=== PATIENT | male | born 2000 | race American Indian/Alaskan Native ===

== ENCOUNTER 2022-11-24 12:48 | Emergency (ER) | payer OTHER, SELFPAY ==
--- NOTE | ~2022-11-24 | XR_ITS ---
EXAMINATION: XR CHEST CLINICAL INFORMATION: Difficulty breathing COMPARISON: None available. TECHNIQUE: 2 views of the chest were obtained. FINDINGS: No significant abnormality is noted involving the heart, lungs, mediastinum, bony thorax or soft tissues. XR/XR chest 2V IMPRESSION: Unremarkable examination.
[2022-11-24 12:54] VITALS: BP 133/71; PULSE 74; RESP 16; TEMP 36.7; O2SAT 100; BMI 20.3
--- NOTE | 2022-11-24 12:54 | ED.SOB ---
HPI - SOB/Dyspnea General Chief Complaint: Dyspnea Stated Complaint: diff breathing Time Seen by Provider: 11/24/22 13:12 Source: patient Mode of arrival: ambulatory Limitations: no limitations History of Present Illness HPI Narrative: Patient is a 22-year-old male with history of depression, anxiety, eating/sleeping disorder, ADHD presenting emergency department with complaint of productive cough for 4 days as well as episodes of feeling as though he is unable to breathe while lying down at night. Patient reports that he smokes marijuana as well as ?puff bars? which are single use nicotine e-cigarettes. Patient states that he cooled information about the path bars and found that they can cause ?popcorn lungs. He denies any fevers, ear pain, sore throat, abdominal pain, nausea, vomiting. Denies any chest pain. MD elicited complaint: shortness of breath and cough Onset (ago): day(s) Context: smoke/fume exposure Timing: intermittent Exacerbating factors: lying flat Relieving factors: nothing Associated symptoms: cough Treatment prior to arrival: none Related Data Allergies Allergy/AdvReac Type Severity Reaction Status Date / Time No Known Allergies Allergy Verified 11/24/22 12:57 Review of Systems Review of Systems: As per HPI. Yes all other systems are reviewed and are negative Constitutional: Constitutional: Reports as per HPI [facility] Social History Social History Advance Directives: No Advance Directives Information Provided: No Physical Exam Vital Signs: Vital Signs: Last Vital Signs Temp 98.4 F 11/24/22 14:55 Pulse 64 11/24/22 14:55 Resp 18 11/24/22 14:55 BP 136/76 11/24/22 14:55 Pulse Ox 99 11/24/22 14:55 O2 Del Method Room Air 11/24/22 14:55 BMI result Body Mass Index 20.3 Vital signs have been reviewed and appear to be correct. Blood pressure normal. Heart rate normal. Respiratory rate normal. Temperature normal. Oxygen saturation normal. Const: General: cooperative, healthy appearing and no acute distress Orientation/consciousness: oriented to person, oriented to place, oriented to time and patient oriented x3 Limitations: no limitations HEENT: Head: Yes normocephalic and Yes atraumatic Ears: external ears normal General nose exam: Normal external nose present Face and sinus: Yes face symmetric Mouth: oropharynx normal and moist mucous membranes Throat: Yes uvula midline Eyes: Pupils: Equal, round and reactive pupils present Neck: Neck: Yes normal visual inspection and Yes supple Resp: Effort & Inspection: normal respiratory effort and able to speak in complete sentences Auscultation: clear to auscultation bilaterally Cardio: Rate: regular rate Rhythm: regular rhythm Heart sounds: S1 normal heart sound present and S2 normal heart sound present GI: Palpation (GI): Soft to palpation and nontender Auscultation: normoactive bowel sounds : General: Yes no CVA tenderness Back/Spine/Pelvis: Back: no CVA tenderness Skin: General skin exam: elasticity normal and turgor normal Neuro: General: oriented to person, oriented to place, oriented to time, patient oriented x3, moves all extremities, no focal motor deficits and CN's II-XI intact bilaterally Cranial nerves: Yes Equal, round and reactive pupils present Cognition (Neuro): normal cognition Extrem: General: Yes full ROM, Yes no pedal edema and Yes no calf tenderness Psych: Mental Status: mental status grossly normal Affect: normal affect Thought process: Normal thought process present Course Course Course Narrative: This is a rapid medical exam. Deferred additional HPI, ROS, PE to primary provider. 22yo male with history of depression, anxiety, eating/sleeping disorder, ADHD here with diff breathing x 3 days. No cough or fever. LS CTA in triage,no apparent distress. Has been smoking puff bars which patient tells me is nicotine VSS Medical Decision Making Medical Decision Making MDM Narrative: Patient is a 22-year-old male with history of depression, anxiety, eating/sleeping disorder, ADHD presenting emergency department with complaint of productive cough for 4 days as well as episodes of feeling as though he is unable to breathe while lying down at night. On exam patient is awake, A+Ox3, VS WNL, afebrile, normal neurological exam without focal deficits, physical exam findings as above. Given reported symptoms and physical exam findings, initial differential includes bronchitis, pneumonia, viral illness, interstitial lung disease. COVID, flu, and RSV all negative X-ray chest unremarkable. My interpretation is in agreement with the radiologist's interpretation. Discussed results with patient all questions answered. Encouraged patient to discontinue use of vape pens and smoking, advised him to follow-up with his PCP regarding assistance with smoking cessation. Return precautions discussed at bedside. Patient verbalized understanding of and agreement with plan. Differential Diagnosis Differential Diagnoses: The differential diagnosis associated with the presentation includes As per [facility]. Lab Data [facility] Lab Attestation statement: I reviewed the patient's lab results. As per [facility]. Labs: Lab Results 11/24/22 Range/Units 13:55 Influenza Type A (PCR) NEGATIVE (Negative) Influenza Type B (PCR) NEGATIVE (Negative) RSV RNA Qual (PCR) NEGATIVE (Negative) SARS-CoV-2 RNA (RT-PCR) NEGATIVE (Negative) Independent Interpretation I performed an independent interpretation of an: Plain X-Ray Interpretation: No acute abnormality on chest x-ray Radiology Impression Discussion of test interpretation with radiology: I have reviewed the radiologist's reading. Radiologist Impression: XR/XR chest 2V IMPRESSION: Unremarkable examination. External Record Review External record reviewed: Inpatient record, Office record and Outpatient record Discharge Plan Discharge Clinical Impression: Cough Patient Disposition: Home, Self-Care Instructions: Acute Cough (ED), How to Stop Smoking (ED), Electronic Cigarettes and Your Health (ED) Additional Instructions: You were evaluated in the emergency department today for cough. Your chest x-ray did not show evidence of a pneumonia or any other abnormality. Your cough is most likely due to a viral illness which will improve on its own with rest and fluids. YOU SHOULD STOP SMOKING, IT IS BAD FOR YOU. Please schedule an appointment for follow-up with your primary care physician within 2 days. Return to the emergency department if you experience worsening cough, fever 100.4? F or greater, recurrent vomiting, chest pain, shortness of breath, or any other concerning symptoms.
[2022-11-24 14:50] LABS: Influenza A PCR NEGATIVE (Negative); Influenza B PCR NEGATIVE (Negative); Resp Syncy Virus RNA Qual PCR NEGATIVE (Negative); SARS COV2 PCR INHOUSE NEGATIVE (Negative)
[2022-11-24 14:55] VITALS: BP 136/76; PULSE 64; RESP 18; TEMP 36.9; O2SAT 99
== END 2022-11-24 15:10 | disposition home or self-care (01) ==
PROVIDERS: Nurse Practitioner Family; Emergency Provider Emergency Medicine
DX: R05.9 Cough, unspecified (principal); R06.00 Dyspnea, unspecified; Z20.822 Contact with and (suspected) exposure to COVID-19; Z20.828 Contact with and (suspected) exposure to other viral communicable diseases
CPT/HCPCS: 0241U; 71046; 99282; 99283

== ENCOUNTER 2023-03-23 07:34 | Emergency (ER) | payer OTHER, SELFPAY ==
[2023-03-23 07:39] VITALS: BP 126/88; PULSE 72; RESP 18; TEMP 36.7; O2SAT 96; BMI 19.9
--- NOTE | 2023-03-23 07:48 | ED_ITS ---
HPI - Ear Problem General Chief complaint: Ear Problems Stated complaint: Unable to hear out of R ear Time Seen by Provider: 03/23/23 07:38 Source: patient Mode of arrival: ambulatory Limitations: no limitations History of Present Illness HPI Narrative: 23 yo male health here with L ear pain and decreased hearing, no trauma, no fevers, no drainage. no swimming MD Complaint: ear pain Location: left ear Duration: constant Severity: moderate Relieving factors: nothing Exacerbating factors: chewing, position of head and palpation Discharge from ear: no Associated symptoms ear: decreased hearing Treatment prior to arrival: none Related Data Previous Rx's Medication Instructions Recorded amoxicillin 875 mg-potassium 1 tab PO BID #14 tabs 03/23/23 clavulanate 125 mg tablet Allergies Allergy/AdvReac Type Severity Reaction Status Date / Time No Known Allergies Allergy Verified 11/24/22 12:57 Review of Systems Review of Systems: Constitutional : No Fever, No Chills, No Fatigue ENT/Mouth : No sore throat, No Rhinorrhea, pos ear pain, pos decreased hearing Eyes: No Eye Pain, No Swelling, No Redness Cardiovascular : No Chest Pain, No SOB, No Dyspnea on Exertion Respiratory : No Cough, No Sputum Gastrointestinal : No Nausea, No Vomiting, No Diarrhea, No abdominal Pain Musculoskeletal : No joint pain, No Myalgias, No Joint Swelling Skin : No Skin Lesions, No rash Neuro : No Weakness, No Numbness, No Dizziness, no Headache All other systems reviewed and are negative [facility] Past Medical History Medical History No pertinent past medical history Social History Social History (Updated 03/23/23 @ 07:52 by Laina Short DO) Patient Tobacco Use Status: Never used Tobacco Physical Exam Vital Signs: Vital Signs: Last Vital Signs Temp 98.1 F 03/23/23 07:39 Pulse 72 03/23/23 07:39 Resp 18 03/23/23 07:39 BP 126/88 03/23/23 07:39 Pulse Ox 96 03/23/23 07:39 O2 Del Method Room Air 03/23/23 07:39 BMI result Body Mass Index 19.9 Appearance: Alert. Oriented X3. No acute distress. Eyes: Pupils equal, round and reactive to light. ENT: Pharynx normal. L ear TM bulging with very small perforation noted anteriorly slit like ext ear and canal normal appearing mastoid normal Neck: Normal inspection. Neck supple. CVS:Pulses normal. Respiratory: No respiratory distress. Abdomen: Soft and nontender. Skin: Skin warm and dry. Normal skin color. Extremities: No lower extremity edema. Neuro: Oriented X 3. No motor deficit. No sensory deficit. Medical Decision Making Medical Decision Making MDM Narrative: 23 yo male with no sig PMH here with c/o L ear pain - has AOM and slit like perforation he is not toxic no mastoid ttp no neuro symptoms afebrile discussed no water in ear and follow up in 1 week to assess closure. Start on augmentin. Stable for outpatient management. Differential Diagnosis Differential Diagnoses: The differential diagnosis associated with the presentation includes AOM, external otitis External Record Review External record reviewed: Inpatient record Prescription Management I considered prescription management with: Antibiotic Discharge Plan Discharge Clinical Impression: Otitis media Qualifiers: Otitis media type: suppurative Chronicity: acute Laterality: left Recurrence: non-recurrent Spontaneous tympanic membrane rupture: with spontaneous rupture Qualified Code(s): H66.012 - Acute suppurative otitis media with spontaneous rupture of ear drum, left ear Patient Disposition: Home, Self-Care Instructions: Ruptured Eardrum (ED), Ear Infection (ED) Additional Instructions: finish all antibiotics. no water in ear for 7 days. return for worsening symptoms, pain fevers no improvement. use cotton ball with vaseline to block ear or use ear plug that is waterproof. you will get drainage out of your ear this is expected. repeat check of ear in one week to make sure hole is closed. Prescriptions: New amoxicillin-pot clavulanate 875-125 mg tablet 1 tab PO BID Qty: 14 0RF
== END 2023-03-23 07:54 | disposition home or self-care (01) ==
PROVIDERS: Emergency Provider Emergency Medicine
DX: H66.012 Acute suppurative otitis media with spontaneous rupture of ear drum, left ear (principal); H92.02 Otalgia, left ear
CPT/HCPCS: 99282; 99283

== ENCOUNTER 2023-08-19 08:17 | Emergency (ER) | payer OTHER, SELFPAY ==
--- NOTE | ~2023-08-19 | XR_ITS ---
EXAMINATION: XR HAND/WRIST, RIGHT CLINICAL INFORMATION: Pain on top of hand/wrist COMPARISON: None TECHNIQUE: PA, lateral, and oblique views of the right hand and wrist. FINDINGS: The bones and soft tissues are normal. No fracture. Alignment is anatomic. Joint spaces are maintained. No erosions or soft tissue calcifications. XR/XR hand wrist RT IMPRESSION: Normal radiographs of the hand and wrist.
[2023-08-19 08:19] VITALS: BP 152/87; PULSE 85; RESP 18; TEMP 36.7; O2SAT 98; BMI 19.8
--- NOTE | 2023-08-19 08:23 | ED_ITS ---
HPI - Extremity Problem General Chief complaint: Extremity Injury, Upper Stated complaint: R wrist pain Time Seen by Provider: 08/19/23 08:23 Source: patient Mode of arrival: ambulatory Limitations: no limitations History of Present Illness ED Provider: Cruzito JORDAN HPI Narrative: This is a 23-year-old male presenting with right wrist pain/hand pain status post boxing yesterday, patient reports he went in to given upper cut, and hurt his wrist. Since then pain is worse with movement better at rest and is having a hard time carrying anything heavy. Denies associated numbness and tingling. No other injuries from this. No previous injuries with right wrist. Related Data Previous Rx's ?Medication ?Instructions ?Recorded amoxicillin 875 mg-potassium 1 tab PO BID #14 tabs 03/23/23 clavulanate 125 mg tablet ketorolac 10 mg tablet 10 mg PO TID PRN pain 5 days #15 08/19/23 tabs Allergies Allergy/AdvReac Type Severity Reaction Status Date / Time No Known Allergies Allergy Verified 08/19/23 08:21 Review of Systems Review of Systems: Yes all other systems are reviewed and are negative [facility] Past Medical History Attestation statement: The following information was validated with the patient. Source: old records reviewed and nursing notes reviewed Medical History No pertinent past medical history Social History Social History Patient Tobacco Use Status: Never used Tobacco Advance Directives: No Advance Directives Information Provided: Yes Do you have a plan to hurt others: No Plan Physical Exam 2 Vital Signs: Vital Signs: Last Vital Signs Temp 98.0 F 08/19/23 08:19 Pulse 85 08/19/23 08:19 Resp 18 08/19/23 08:19 BP 152/87 H 08/19/23 08:19 Pulse Ox 98 08/19/23 08:19 O2 Del Method Room Air 08/19/23 08:19 BMI result Body Mass Index 19.8 vss Appearance: Alert.? Oriented X3.? No acute distress.? Head: Normocephalic, atraumatic, no step-offs or deformities Eyes: Pupils equal, round and reactive to light.? Neck: Normal inspection.? Neck supple.? CVS: Normal heart rate and rhythm.? Pulses normal.? Respiratory: No respiratory distress.? Breath sounds normal.? Abdomen: Soft and nontender.? Skin: Skin warm and dry.? Normal skin color.? Normal skin turgor.? Extremities: No lower extremity edema.? No calf ttp. 5/5 strength to bilateral upper and lower extremities 2+ radial pulses equal and b/l. Normal sensation distally b/l. Normal hand electrical and instrumentation mechanic b/l but reports pain with hand electrical and instrumentation mechanic on the right. Painful rom to right wrist normal rom to left wrist. Cap refil <2 seconds equal and b/l. + ttp to radial side of right wrist. Neuro: Oriented X 3.? No motor deficit.? No sensory deficit. CN 2-12 intact Course Reevaluation(s) Reevaluation #1: X-ray unremarkable. On nurse re-evaluation patient better. Educated patient on diagnosis and treatment plan, answered all question, patient verbalizes understanding. At this time patient will be discharged home, advised to return with new or worsening symptoms. Educated on worrisome signs and symptoms and when to return. At this time I feel comfortable discharge home. Time: 09:06 Medications Administered Discontinued Medications Generic Name Dose Route Start Last Admin Trade Name Freq PRN Reason Stop Dose Admin Ketorolac Tromethamine 30 mg 08/19/23 08:26 08/19/23 08:30 Ketorolac Tromethamine 30 Mg/Ml Vial IM 08/19/23 08:27 30 mg ONCE ONE Administration Medical Decision Making Medical Decision Making [facility] Narrative: [id number] 23-year-old male presents with right wrist pain status post boxing injury Physical exam No lower extremity edema.? No calf ttp. 5/5 strength to bilateral upper and lower extremities 2+ radial pulses equal and b/l. Normal sensation distally b/l. Normal hand electrical and instrumentation mechanic b/l but reports pain with hand electrical and instrumentation mechanic on the right. Painful rom to right wrist normal rom to left wrist. Cap refil <2 seconds equal and b/l. + ttp to radial side of right wrist. History and physical exam concerning for sprain or strain versus fracture dislocation. Unlikely neurovascular compromise acute threat to limb. Plan imaging Differential Diagnosis Differential Diagnoses: The differential diagnosis associated with the presentation includes History and physical exam concerning for sprain or strain versus fracture dislocation. Unlikely neurovascular compromise acute threat to limb. Admission/Observation Consideration of admission/observation: Escalation of care including admission/observation considered Possible Independent Interpretation I performed an independent interpretation of an: Plain X-Ray Radiology Impression Discussion of test interpretation with radiology: I have reviewed the radiologist's reading. External Record Review External record reviewed: Outpatient record Prescription Management I considered prescription management with: Pain Medication Critical Care Time Critical Care Time Critical Care Time: No Discharge Plan Discharge Clinical Impression: Right wrist pain Patient Disposition: Home, Self-Care Instructions: Wrist Injury (ED), Arthralgia (ED) Additional Instructions: Take your medications as prescribed. If you were prescribed antibiotics today, it is important that you take your medication to their entirety, do not skip any doses, do not finish them early. Follow-up with your primary care provider this week. Return to the emergency department with new or worsening symptoms. Such as fevers, chills, chest pain, shortness of breath, nausea, vomiting, dizziness, headache, vision changes, lethargy, numbness, tingling In case of emergency call 911 Toradol has been sent to your pharmacy, you tolerated this well in the department. Please take this as prescribed do not take this with ibuprofen, or other NSAIDs, do not mix this with alcohol. Side effects of this medication including increased risk for bleeding and possible kidney injury. Follow-up with the orthopedic team if needed. Wear your splint as educated. Do not wear it at night. Rest, ice, compress and elevate extremity. I will call you of your x-rays abnormal. Prescriptions: New ketorolac 10 mg tablet 10 mg PO TID PRN (Reason: pain) 5 Days Qty: 15 0RF No Action amoxicillin-pot clavulanate 875-125 mg tablet 1 tab PO BID Qty: 14 0RF Referrals: Physician,Unknown J [Primary Care Provider] - 2 days [facility] [Provider Group] - 2 days Stand Alone Forms: Work/School Release Print Language: Bulgarian
[2023-08-19] MEDS: Ketorolac Tromethamine 30 MG/ML VIAL IM (08:30)
--- NOTE | 2023-08-19 08:33 | PC.NURSE ---
a&ox4. vss and up to date aside from being slightly hypertensive. pt from triage s/p hurting right wrist while boxing about a week and a half ago. states he was lifting a heavy box on saturday/made pain increase. swelling noted to medial side of wrist. cms intact. denies numbness/tingling. pulses palpable. medication administered per provider order. effectiveness pending. pt waiting for xray to be completed.
--- OUTSIDE RECORDS SUMMARY | 2023-08-19 08:42 | XMS_ITS | Continuity of Care Document ---
Author Organization [facility] Address [address] [place] [address]- Care Team Providers Care Relationship Mgr Name Role Phone Not on Staff, PCP Primary Care Physician Unavail able Encounter [facility] Date(s): 12/06/22 - 01/05/23 [place] [address]- Allergies, Adverse Reactions, Alerts No Known Allergies Patient Care team information Care Team Personnel Name: Not on Staff, PCP Position: [facility] Physician (General Medicine) Member Role: PCP Care Team Related Persons Name: EDUAR FLORES Address: home [address] [place] [address]
--- OUTSIDE RECORDS SUMMARY | 2023-08-19 08:42 | XMS_ITS | Continuity of Care Document ---
Author Organization [facility] Address [address] [place] [address]- Care Team Providers Care Client Services Account Manager Name Role Phone Pari Spence Primary Care Physician Encounter [facility] Date(s): 03/29/23 - 03/29/[address] [id number] Attending Physician: Pari Spence Allergies, Adverse Reactions, Alerts No Known Allergies Medications Augmentin 875 mg-125 mg oral tablet 1 tablet, By Mouth, Every 12 hours, for 7 days, # 14 tablet, 0 Refills, Acute 04/05/23 15:35:00 EST, 03/29/23 15:35:00 EST, Tablet, [id number], Partial fill upon patient request if the prescription is for a schedule II opioid drug., 168, cm, 0... Start Date: 03/29/23 Stop Date: 04/05/23 Status: Ordered Problem List No Known Problems Social History Social History Type Response Smoking Status 5-9 cigarettes (betw een 1/4 to 1/2 pack)/day in last 30 days; Interested in cessation: Yes entered on: 03/29/23 Sex Patient Care team information Care Team Personnel Name: Pari Spence Position: [facility] PCO Associate Professional Member Role: PCP Address: Address: [address] [place] [address]- Care Team Related Persons Name: EDUAR FLORES Address: home [address] [place] [address]
--- OUTSIDE RECORDS SUMMARY | 2023-08-19 08:42 | XMS_ITS | Continuity of Care Document ---
Author Organization [facility] Address [address] [place] [address]- Care Team Providers Care Supervisor Braiding Name Role Phone Pari Spence Primary Care Physician [phone] Encounter [facility] Date(s): 03/29/23 - 04/28/23 [facility] Adult [address] [place] [address]- Attending Physician: Admtr, Ar8 Admitting Physician: Admtr, Ar8 Referring Physician: Admtr, Ar8 Allergies, Adverse Reactions, Alerts No Known Allergies Problem List No Known Problems Social History Social History Type Response Smoking Status 5-9 cigarettes (betw een 1/4 to 1/2 pack)/day in last 30 days; Interested in cessation: Yes entered on: 03/29/23 Sex Patient Care team information Care Team Personnel Name: Pari Spence Position: [facility] PCO Associate Professional Member Role: PCP Address: Address: [address] [place] [address]- Care Team Related Persons Name: EDUAR FLORES Address: home [address] [place] [address]
--- OUTSIDE RECORDS SUMMARY | 2023-08-19 08:42 | XMS_ITS | Continuity of Care Document ---
Author Organization [facility] Alirio [facility] Address [address] [place] [address]- Care Team Providers Care Knitting Teacher Name Role Phone Pari Spence Primary Care Physician [phone] Encounter [facility] Date(s): 04/10/23 - 05/10/23 [facility] Adult [address] [place] [address]- Allergies, Adverse Reactions, Alerts No Known Allergies Problem List No Known Problems Social History Social History Type Response Smoking Status 5-9 cigarettes (betw een 1/4 to 1/2 pack)/day in last 30 days; Interested in cessation: Yes entered on: 03/29/23 Sex Patient Care team information Care Team Personnel Name: Pari Spence Position: [facility] PCO Associate Professional Member Role: PCP Address: Address: [address] [place] [address]- Care Team Related Persons Name: EDUAR FLORES Address: home [address] [address] [facility] [address] [place] [address]
--- OUTSIDE RECORDS SUMMARY | 2023-08-19 08:42 | XMS_ITS | Continuity of Care Document ---
Author Organization [facility] Alirio Bert Address [address] [place] [address]- Care Team Providers Care Dance Professor Name Role Phone Pari Spence Primary Care Physician Encounter [facility] Date(s): 05/31/23 - 06/30/23 [facility] Adult [address] [place] [id number] Allergies, Adverse Reactions, Alerts No Known Allergies Problem List No Known Problems Social History Social History Type Response Smoking Status 5-9 cigarettes (betw een 1/4 to 1/2 pack)/day in last 30 days; Interested in cessation: Yes entered on: 03/29/23 Sex Patient Care team information Care Team Personnel Name: Pari Spence Position: [facility] PCO Associate Professional Member Role: PCP Address: Address: [address] [place] [address]- Care Team Related Persons Name: EDUAR FLORES Address: home [address] [place] [address]
--- OUTSIDE RECORDS SUMMARY | 2023-08-19 08:42 | XMS_ITS | Continuity of Care Document ---
Author Organization [facility] Address [address] [place] [phone]- Care Team Providers Care Valve Assembler Name Role Phone Not on Staff, PCP Primary Care Physician Unavail able Encounter [facility] Date(s): 03/07/22 - 04/06/[address] [address]- Allergies, Adverse Reactions, Alerts No Known Allergies Patient Care team information Care Team Personnel Name: Not on Staff, PCP Position: [facility] Physician (General Medicine) Member Role: PCP Care Team Related Persons Name: EDUAR FLORES Address: home [address] [place] [address] [place] [address]
--- OUTSIDE RECORDS SUMMARY | 2023-08-19 08:42 | XMS_ITS | Continuity of Care Document ---
Author Organization [facility] ter Address [address] [place] [id number]- Care Team Providers Care Raw Material Planner Name Role Phone Not on Staff, PCP Primary Care Physician Unavail able Encounter [facility] [place] Date(s): 04/06/21 - 04/07/[address] [address]- Discharge Disposition: A-D/C Home Attending Physician: Lo Johnson MD Admitting Physician: Lo Johnson MD Referring Physician: Not on Staff, Referring MD Allergies, Adverse Reactions, Alerts No Known Allergies Vital Signs Most recent to oldest [Reference Range]: 1 2 3 Oxygen Saturation [94-100 %] 100 % (04/07/21 12:17 AM) 99 % (04/06/21 11:42 PM) 100 % (04/06/21 8:25 PM) Pulse Rate [55-90 bpm] 58 bpm (04/07/21 12:17 AM) 108 bpm *H* (04/06/21 11:42 PM) 70 bpm (04/06/21 8:25 PM) Blood Pressure [90-138/55-84 mm Hg] 130/63mm Hg (04/07/21 12:17 AM) 142/84mm Hg *H* (04/06/21 11:42 PM) 134/73mm Hg (04/06/21 8:25 PM) Respiratory Rate [16-30 br/min] 16 br/min (04/07/21 12:17 AM) 20 br/min (04/06/21 11:42 PM) 16 br/min (04/06/21 8:25 PM) Temperature [96.8-100.4 DegF] 98.2 DegF (04/06/21 11:42 PM) 98.2 DegF (04/06/21 8:25 PM) 98.4 DegF (04/06/21 7:40 PM) Mode of Delivery (Oxygen) Room air (04/07/21 12:17 AM) Room air (04/06/21 11:42 PM) Room air (04/06/21 8:25 PM) Blood pressure sites Arm, right (04/07/21 12:17 AM) Arm, right (04/06/21 11:42 PM) Arm, left (04/06/21 8:25 PM) Temperature Route Axillary (04/06/21 11:42 PM) Oral (04/06/21 8:25 PM) Oral (04/06/21 7:40 PM)
--- OUTSIDE RECORDS SUMMARY | 2023-08-19 08:42 | XMS_ITS | Continuity of Care Document ---
Author Organization [facility] Address [address] [place] [address]- Care Team Providers Care Agronomy Advisor Name Role Phone Not on Staff, PCP Primary Care Physician Unavail able Encounter [facility] Date(s): 12/31/22 - 01/30/23 [facility] [address] [place] [address]- Attending Physician: Admtr, Ar8 Admitting Physician: Admtr, Ar8 Referring Physician: Admtr, Ar8 Allergies, Adverse Reactions, Alerts No Known Allergies Patient Care team information Care Team Personnel Name: Not on Staff, PCP Position: S Physician (General Medicine) Member Role: PCP Care Team Related Persons Name: EDUAR FLORES Address: home [address] [place] [address]
--- OUTSIDE RECORDS SUMMARY | 2023-08-19 08:42 | XMS_ITS | Continuity of Care Document ---
Author Organization [facility] Alirio Bert lt Address [address] [place] [address]- Care Team Providers Care Studio Set Up Worker Name Role Phone Pari Spence Primary Care Physician Encounter [facility] [place] Date(s): 03/29/23 - 04/05/23 [facility] Adult [address] [place] [address]- Encounter Diagnosis Wellness examination(Discharge Diagnosis) - 03/29/23 Attending Physician: Pari Spence Allergies, Adverse Reactions, Alerts No Known Allergies Problem List No Chronic Problems Diagnosis Diagnosis Type Effective Dates Health Status Clinical Service Informant Wellness examination Discharge Diagnosis 03/29/23 Vital Signs Most recent to oldest [Reference Range]: 1 Height 168 cm (03/29/23 3:21 PM) Weight 57.7 kg (03/29/23 3:21 PM) Oxygen Saturation [94-100 %] 97 % (03/29/23 3:21 PM) Pulse Rate [55-90 bpm] 60 bpm (03/29/23 3:21 PM) Body Mass Index [18.5-24.99 kg/m2] 20.44 kg/m2 (03/29/23 3:21 PM) Blood Pressure [90-138/55-84 mm Hg] 123/ 64mm Hg (03/29/23 3:21 PM) Temperature [96.8-100.4 DegF] 98.7 DegF (03/29/23 3:21 PM) Mode of Delivery (Oxygen) Room air (03/29/23 3:21 PM) Blood pressure sites Arm, right (03/29/23 3:21 PM) Temperature Route Oral (03/29/23 3:21 PM) Weight Obtained Via Standing scale (03/29/23 3:21 PM) Social History Social History Type Response Smoking Status 5-9 cigarettes (betw een 1/4 to 1/2 pack)/day in last 30 days; Interested in cessation: Yes entered on: 03/29/23 Sex Patient Care team information Care Team Personnel Name: Pari Spence Position: [facility] PCO Associate Professional Member Role: PCP Address: Address: [address] [place] [address]- Care Team Related Persons Name: EDUAR FLORES Address: home [address] [place] [address] [place] [address]
--- OUTSIDE RECORDS SUMMARY | 2023-08-19 08:42 | XMS_ITS | Continuity of Care Document ---
Author Organization [facility] Bert Address [address] [place] [id number]- Care Team Providers Care Professional Benefits Sales Consultant Name Role Phone Pari Spence Primary Care Physician [phone] [place] [facility] [place] 06/14/23 - 07/14/23 [facility] Adult [address] [place] [address]- Attending Physician: Admtr, Ar8 Admitting Physician: Admtr, [...] Associate Professional Member Role: PCP Address: Address: [address] [place] [address] Care Team Related Persons Name: EDUAR FLORES Address: home [address] [place] [address]
--- OUTSIDE RECORDS SUMMARY | 2023-08-19 08:42 | XMS_ITS | Continuity of Care Document ---
Author Organization [facility] Bert Address [address] [place] [address]- Care Team Providers Care Nursing Information Systems Coordinator Name Role Phone Pari Spence Primary Care Physician [place] [facility] [place]s): 05/31/23 - 07/14/23 [facility] Adult [address] [place] [address]- Attending Physician: Pari Spence Referring Physician: Geovanni Ybarra MD Allergies, Adverse Reactions, Alerts No Known Allergies Problem List No Known Problems Social History Social History Type Response Smoking Status 5-9 cigarettes (betw een 1/4 to 1/2 pack)/day in last 30 days; Interested in cessation: Yes entered on: 03/29/23 Sex Patient Care team information Care Team Personnel Name: Pari Spence Position: S PCO Associate Professional Member Role: PCP Address: Address: [address] [place] [phone]- Care Team Related Persons Name: EDUAR FLORES Address: home [address] [place] [address]
--- OUTSIDE RECORDS SUMMARY | 2023-08-19 08:42 | XMS_ITS | Continuity of Care Document ---
Author Organization [facility] Address [address] [place] [address]- Care Team Providers Care Turkish Rubber Name Role Phone Not on Staff, PCP Primary Care Physician Unavail able Encounter [facility] Date(s): 12/06/22 - 01/30/23 [facility] [address] [place] [address]- Attending Physician: Not on Staff, Attending MD Allergies, Adverse Reactions, Alerts No Known Allergies Patient Care team information Care Team Personnel Name: Not on Staff, PCP Position: S Physician (General Medicine) Member Role: PCP Care Team Related Persons Name: EDUAR FLORES Address: home [address] [place] [address]
[2023-08-19 09:08] VITALS: BP 152/87; PULSE 85; RESP 18; TEMP 36.7; O2SAT 98
--- NOTE | 2023-08-19 09:08 | PC.NURSE ---
splint applied to right wrist. pt tolerated well.
== END 2023-08-19 09:09 | disposition home or self-care (01) ==
PROVIDERS: Emergency Provider Emergency Medicine
DX: S69.91XA Unspecified injury of right wrist, hand and finger(s), initial encounter (principal); M25.531 Pain in right wrist; M79.641 Pain in right hand; X50.0XXA Overexertion from strenuous movement or load, initial encounter; X50.9XXA Other and unspecified overexertion or strenuous movements or postures, initial encounter; Y93.9 Activity, unspecified; Y92.9 Unspecified place or not applicable; Y99.8 Other external cause status
CPT/HCPCS: 29125; 73110; 73130; 96372; 99283; 99284; J1885

== ENCOUNTER 2023-09-06 09:59 | Outpatient (AMB) | payer OTHER, SELFPAY ==
--- NOTE | 2023-09-06 10:05 | MHC.OFFVIS ---
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 Patient complaining of right wrist pain, DOI 08/18/23, s/p boxing. He went to throw an upper cut and instead of hitting the punching bag with his fist he claims his wrist bent back. Patient describes pain as tightening pain. 08/18 on a 0-10 pain scale. He says these symptoms started in his wrist and now it radiates into his thumb/arm. Certain movements with the right thumb cause pain on the radial aspect of his wrist. ROM is limited due to his symptoms. Patient has been taking for pain with/without relief. Reports numbness, tingling in thumb and swelling in all his fingers. [facility] ED provided him with a splint but he only wore it for a week since working with it was difficult. 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 He was prescribed ketorolac which provided no relief . [facility] ED also injected his left arm w/ Ketorolac on 08/19/23. 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 The patient was previously evaluated in the ED on 08/19/23, but reports that injury was approximately one week prior to that date. The patient reports that he was boxing, attempted an upper cut punch, and this landed wrong and caused immediate pain in his R radial wrist and thumb. The patient reports that he thought this would improve on its own, but presented to the ED when it showed no improvement for a week. X rays taken in the ED revealed no acute fracture or bony abnormality, and the patient was placed in a splint and sent for follow up. Today, the patient reports that he continues to experience pain in the base of the R thumb and R radial wrist, with minimal improvement from ED visit. The patient reports that he discontinued use of the splint given to him in the ED, due to discomfort and impeding his ability to work at [employer]. [facility] Medical History No pertinent past medical history Social History (Updated 09/06/23 @ 10:15 by ALDA Dillard) Patient Tobacco Use Status: Never used Tobacco Current occupational status: employed Current occupation: right handed / [employer] Review of Systems Const All systems reviewed & are unremarkable except as noted in HPI and below Physical Exam Vital Signs: BMI result Body Mass Index 20.3 Extrem Other: Patient is alert, oriented, and in no acute distress. Neuro: Patient reports diminished sensation to all digits of the R hand as compared to the left. Vascular: Cap refill brisk Pain: Patient reports significant tenderness to palpation of the R radial styloid and anatomical snuffbox. ROM: ROM of the R wrist limited due to pain. Patient is able to make a closed fist with the R hand with encouragement. Skin: No lacerations or abrasions. General: No ecchymosis, erythema, or evidence of infection. Psych: Appears grossly normal Affect normal Attitude cooperative Results Reviewed Results Reviewed: X-rays obtained in the office today and independently reviewed by me, Zion Sanchez PA-C, demonstrate no radioevident fracture or acute bony abnormality. Assessment & Plan Assessment & Plan (1) Tenderness of anatomical snuffbox: Code(s): M79.643 - Pain in unspecified hand Category: Medical (2) Right wrist pain: Code(s): M25.531 - Pain in right wrist Category: Medical Plan 1. Tenderness of anatomical snuffbox of R wrist 2. R wrist pain Date of injury approximately 08/12/23 No obvious fracture on X rays, but due to patient's symptoms, index of suspicion for fracture of the scaphoid is high Due to being 4 weeks removed from injury, STAT CT ordered to assess scaphoid and other bones of the R wrist while surgical intervention is still possible Patient given thermal molded thumb spica splint to wear like a cast, only removing for bathing, until follow up Patient is also given a 1 pound weight restriction in his R hand, and is provided with a work note stating this Patient is amenable to this plan Patient will follow up with me after CT scan with AR in office for CT review, sooner with any acute concerns Orders: Orders XR wrist RT w scaphoid Today M79.641 - Pain in right hand CT wrist RT wo IV con Today M79.643 - Pain in unspecified hand Medications: Discontinued amoxicillin-pot clavulanate 875-125 mg Discontinued Reason: Patient Completed Course 1 tab PO BID 14 tabs 0RF ketorolac Discontinued Reason: Patient no longer taking 10 mg PO TID 5 days PRN 15 tabs 0RF pain Coding Level of Care Code New Pt Level 3 (09403) Diagnoses Tenderness of anatomical snuffbox M79.643 Right wrist pain M25.531
[2023-09-06 10:06] VITALS: BMI 20.3
== END 2023-09-06 10:57 | disposition home or self-care (01) ==
DX: M79.641 Pain in right hand (principal); M25.531 Pain in right wrist
CPT/HCPCS: 99204

== ENCOUNTER 2023-09-06 09:59 | Outpatient (REF) | payer OTHER, SELFPAY ==
--- NOTE | ~2023-09-06 | XR_ITS ---
EXAMINATION: XR WRIST, RIGHT WITH SCAPHOID CLINICAL INFORMATION: Right hand pain. COMPARISON: Right hand and wrist radiographs dated 08/19/2023. Subsequent right wrist CT. TECHNIQUE: PA, oblique, lateral, and scaphoid views of the right wrist. FINDINGS: No acute fracture or dislocation. Specifically, the scaphoid is intact. Normal carpal alignment. No joint space narrowing or marginal osteophytes. No osseous erosion. No periarticular osteopenia. No abnormal soft tissue calcification. XR/XR wrist RT w scaphoid IMPRESSION: No acute osseous abnormality. Specifically, the scaphoid is intact.
== END 2023-09-06 10:00 | disposition home or self-care (01) ==
LOC: HO.HOSX 09:59
DX: M79.641 Pain in right hand (principal); M25.531 Pain in right wrist
CPT/HCPCS: 73110; 99202

== ENCOUNTER 2023-09-06 11:16 | Outpatient (REF) | payer OTHER, SELFPAY ==
--- NOTE | ~2023-09-06 | CT_ITS ---
EXAMINATION: CT WRIST WITHOUT CONTRAST, RIGHT CLINICAL INFORMATION: Injury approximately 4 weeks ago. Concern for scaphoid fracture. COMPARISON: Right wrist radiographs dated 09/06/2023. TECHNIQUE: Contiguous axial CT images of the right wrist were obtained without contrast. Multiplanar reformats were provided and reviewed. This CT examination was performed using dose optimization techniques as appropriate, variously including the following: *Automated exposure control *Adjustment of mA and/or kV according to patient size (this includes techniques or standardized protocols for targeted exams where dose is matched to indication/reason for exam; i.e. extremities or head) *Use of iterative reconstruction technique DLP: 156 mGy-cm FINDINGS: No acute fracture or dislocation. Specifically, the scaphoid is intact. Normal carpal alignment. No joint space narrowing or marginal osteophytes. No concerning lytic or blastic osseous lesion. No large joint effusion. No soft tissue mass or fluid collection. The visualized muscles and tendons are grossly intact, however, evaluation is limited on CT examination. CT/CT wrist RT wo IV con IMPRESSION: No acute fracture or dislocation. Specifically, the scaphoid is intact.
== END 2023-09-06 11:17 | disposition home or self-care (01) ==
LOC: HO.CT 11:16
DX: M79.641 Pain in right hand (principal)
CPT/HCPCS: 73200

== ENCOUNTER 2023-09-13 09:59 | Outpatient (AMB) | payer OTHER, SELFPAY ==
--- NOTE | 2023-09-13 10:02 | A.OFFVIS_ITS ---
Intake Visit Reasons: OV- RT wrist CT review Intake Note: Pavan is a 23 year old right and dominant male who presents today for ED follow up. Patient complaining of right wrist pain, DOI 08/18/23, s/p boxing. This patient is here today for a CT review. He reports random throbbing the other day. He is still wearing his splint at this time. Allergies No Known Allergies Allergy (Verified 09/13/23 10:07) Medication List - Last Reconciled 09/13/23 by Adela Tabares RN No Known Home Meds HPI Comments Details: Patient is a 23-year-old male who presents for CT scan review, due to right wrist pain with associated anatomical snuffbox tenderness at last visit. Today, the patient reports that he has been feeling much better since last evaluation, and only experiences mild to moderate radial sided wrist pain with wrist extension. The patient reports that he has been wearing the thumb spica splint previously provided to him at last visit faithfully. No numbness or tingling in the right hand at this time. No other acute complaints or concerns. [facility] Medical History No pertinent past medical history Social History (Updated 09/06/23 @ 10:15 by ALDA Dillard) Patient Tobacco Use Status: Never used Tobacco Current occupational status: employed Current occupation: right handed / [employer] Physical Exam Extrem Other: Patient is alert, oriented, and in no acute distress. Neuro: Median, ulnar, radial nerves motor and sensory intact and sensation is normal to the tips of all digits. Vascular: Cap refill brisk Pain: Patient reports mild to moderate pain in the radial sided wrist with wrist extension. No tenderness to palpation No pain with any other range of motion ROM: Range of motion of the right hand and wrist full and intact Patient is able to make a closed fist Skin: No lacerations or abrasions. General: No ecchymosis, erythema, or evidence of infection. Psych: Appears grossly normal Affect normal Attitude cooperative Results Reviewed Results Reviewed: CT scan obtained on 09/06/2023 and independently reviewed by me, Zion Sanchez PA-C, demonstrate no fracture or acute bony abnormality. Specifically, the scaphoid is intact. Radiologist Read: IMPRESSION: No acute fracture or dislocation. Specifically, the scaphoid is intact. Dictated By: Hiren Pastor MD Signed By: <Electronically signed by Hiren Pastor MD in OV> Assessment & Plan Assessment & Plan (1) Right wrist pain: Code(s): M25.531 - Pain in right wrist Category: Medical Plan 1. Right wrist pain Date of injury 08/19/2023 Patient is informed that there is no fracture or other acute bony abnormality present on CT scan Patient is also informed that, due to improvement of symptoms, no acute intervention is indicated at this time Patient is offered occupational hand therapy for gentle strengthening and range of motion about the right wrist, but declines, stating that he feels he can continue to recover on his own Patient is educated to continue with conservative measures such as rest, ice, elevation, and [id number] systemic pain medication and/or topical pain medications Patient is educated to call us if he does not notice any symptom resolution within the next 1-2 months, or if things begin to worsen Patient is cleared to return to work today Patient will follow-up p.r.n. with any acute concerns Coding Level of Care Code Est Pt Level 3 (97361) Diagnoses Right wrist pain M25.531
== END 2023-09-13 10:26 | disposition home or self-care (01) ==
DX: M25.531 Pain in right wrist (principal)
CPT/HCPCS: 99213

== ENCOUNTER → 2023-09-13 09:59 | Outpatient (BNVA) | payer OTHER, SELFPAY | DX: M25.531 Pain in right wrist (principal) | CPT/HCPCS: 99212 ==